=== PATIENT | male | born 1965 | race Caucasian/White ===

== ENCOUNTER 2017-07-07 11:04 | Inpatient (IN) | payer OTHER ==
[~2017-07-07] VITALS: Ht 175.3 cm; Wt 106.3 kg
--- NOTE | 2017-07-07 11:09 | NUR ---
EKG IN TRIAGE
--- NOTE | 2017-07-07 11:15 | NUR ---
PT SENT HERE FROM PCP FOR EVAL OF PALPITATION. DENIES CHEST PAIN OR SOB. PT C/O DIFFICULTY SLEEPING. PT NOTED TO BE HYPERTENSIVE AND TACHYCARDIAC. PT PLACED ON GREENSMAN SHOWING A-FIB RVR AND PLACED ON PULSE OX
--- NOTE | 2017-07-07 11:17 | NUR ---
PT EXAMINED BU DR MIKE
--- NOTE | 2017-07-07 11:25 | NUR ---
LAB AT BEDSIDE
--- NOTE | 2017-07-07 11:30 | NUR ---
ADENOSINE 6MG AND [address] ORDER. 1ST DOSE WITH NO EFFECT; 2ND DOSE: HR DECREASED FROM APPROX 170S TO 105 THEN RAISED BACK TO 170S AFTER 10SECS
[2017-07-07 11:50] LABS: BASOPHIL % 0.4 % (0-2); RED CELL DISTRIBUTION WIDTH 14.3 % (11.5-14.5)
--- NOTE | 2017-07-07 12:02 | NUR ---
R/T AT BEDSIDE FOR ANG REDRAW
[2017-07-07 12:04] LABS: PLATELET COUNT 179 x10^3mcL (130-400)
[2017-07-07 12:05] LABS: CALCIUM 8.6 mg/dL (8.5-10.1); CARBON DIOXIDE 25.1 mmol/L (21-32); CHLORIDE SERUM 106 mmol/L (98-107); CREATININE SERUM 1.1 mg/dL (0.7-1.3); GFR1 > 60 mL/min; GLUCOSE SERUM 111 mg/dL (74-106); SODIUM SERUM 142 mmol/L (136-145)
[2017-07-07 12:20] LABS: ALBUMIN 3.8 g/dL (3.4-5.0); ALKALINE PHOSPHATASE 83 U/L (46-116); ALT/SGPT 45 U/L (16-63); AST/SGOT 34 U/L (15-37); BILIRUBIN TOTAL 1.3 mg/dL (0.20-1.00); T4(THYROXINE) 7.8 ug/dL (4.7-13.3); TOTAL PROTEIN, SERUM 6.9 g/dL (6.4-8.2)
--- NOTE | 2017-07-07 12:40 | NUR ---
PT RESTING IN BED. RESP EVEN AND UNLABORED, 2LT NC. NAD NOTED. AWAITING OK TO MOVE TO [facility]
[2017-07-07 12:47] LABS: CK-MB 4.2 ng/mL (0-3.6)
--- NOTE | 2017-07-07 12:47 | NUR ---
REPORT GIVEN TO RUTH AVILA IN [facility] FOR CONTINUITY OF CARE. PT AWAITING OK TO TRANSPORT TO [facility] FROM
[2017-07-07 12:55] LABS: MAGNESIUM 2.1 mg/dL (1.8-2.4); PHOSPHOROUS 4.2 mg/dL (2.5-4.9)
[2017-07-07 12:57] LABS: CHOLESTEROL/HDL RATIO 2.4
[2017-07-07 13:04] LABS: FREE T4 1.38 ng/dL (0.76-1.46); T4(THYROXINE) 7.7 ug/dL (4.7-13.3)
[2017-07-07 13:16] LABS: T3 TOTAL 0.88 ng/mL
--- NOTE | 2017-07-07 13:38 | NUR ---
RECEIVED PT FROM ED [facility]IA [facility], CAME IN DUE TO PALPITATIONS. AAOX4. C/O MILD SOB, LUNG SOUNDS CTA. W/ PRODUCTIVE COUGH, EXPECTORATES WHITE PHLEGM. DENIES CHEST PAIN/PRESSURE, AFIB W/ RVR ON THE MONITOR, HR AT 140'S. DENIES ABDOMINAL DISCOMFORT. VOIDS FREELY. W/ DRY REDDISH SCABS ON RLE. W/ NON-PITTING EDEMA ON BLE. C/O MILD ANXIETY. FAMILY AT BEDSIDE. SIDE RAILS UPX2. CALL LIGHT ON REACH. PRIMARY NURSE RUTH AT BEDSIDE FOR CONTINUITY OF CARE
[2017-07-07 13:53] VITALS: BP 145/107
[2017-07-07 13:55] VITALS: Ht 175.3 cm; Wt 106.3 kg
--- NOTE | 2017-07-07 14:09 | NUR ---
DIGOXIN 0.25 MG SLOW IVP AND TAMBOCOR 50 MG PO GIVEN ORDERED FOR CF=110. DR. CASTELLANO AT BEDSIDE
--- NOTE | 2017-07-07 14:20 | NUR ---
DR. MCCRARY AT BEDSIDE ASSESSING THE PT
--- NOTE | 2017-07-07 17:36 | NUR ---
DR. CASTELLANO NOTIFIED OF BP 153/110. PT ASYMPTOMATIC AT THIS TIME.
[2017-07-07 17:48] VITALS: BP 153/110
[2017-07-07 18:30] LABS: microscopic required? YES; urine erythrocyte NEGATIVE (NEGATIVE)
--- NOTE | 2017-07-07 18:44 | NUR ---
PT RESTING IN BED. NO ACUTE DISTRESS. DENIES PAIN. IVF INFUSING. FAMILY AT BEDSIDE. BED IN LOW POSITION, CALL LIGHT WITHIN REACH. WILL ENDORSE TO INCOMING SHIFT.
[2017-07-07 18:46] LABS: AMPHETAMINE QUAL UR NONE DETECTED (NEG <=1000)
--- NOTE | 2017-07-07 20:00 | NUR ---
RECEIVED PT IN BED, ALERT AND ORIENTED. DENIES HEADACHE/DIZZINESS. RESP. EVEN AND UNLABORED. [address], NO DISTRESS NOTED. AFEBRILE AND VITAL SIGNS STABLE. AFIB WITH HR 93, ON THE MONITOR, DENIES CHEST PAIN OR ANY DISCOMFORT AT THIS TIME. IVF , NS AT 100ML/HR, INTACT AND INFUSING VIA LFA, SITE CLEAR. AMBULATORY. VOIDING FREELY. CALL [facility] WITHIN REACH. WILL CONTINUE TO MONITOR.
[2017-07-07 22:09] VITALS: BP 149/100
--- NOTE | 2017-07-07 22:30 | NUR ---
STARTED PT ON HEPARIN DRIP PER PROTOCOL. HEPARIN DRIP INFUSING AT 1300UNITS/HR AT THIS TIME, PENDING NEXT PTT LEVEL READING. WILL CONTINUE TO MONITOR.
--- NOTE | 2017-07-08 03:17 | NUR ---
NO COMPLAINTS NOTED AT THIS TIME. RESP. EVEN AND UNLABORED.NO DISTRESS NOTED. HEPARIN DRIP , IVF INTACT AND INFUSING , SITE CLEAR. FAMILY MEMBER AT THE BEDSIDE. WILL CONTINUE TO MONITOR.
[2017-07-08 04:26] LABS: CARBON DIOXIDE 24.7 mmol/L (21-32); CHLORIDE SERUM 106 mmol/L (98-107); GFR1 > 60 mL/min; GLUCOSE SERUM 104 mg/dL (74-106); POTASSIUM SERUM 3.8 mmol/L (3.5-5.1); SODIUM SERUM 140 mmol/L (136-145)
[2017-07-08 04:36] LABS: BASOPHIL % 0.4 % (0-2); PLATELET COUNT 147 x10^3mcL (130-400); RED CELL DISTRIBUTION WIDTH 14.3 % (11.5-14.5)
--- NOTE | 2017-07-08 05:30 | NUR ---
PTT LEVEL SHOWS 87.4, HEPARIN DRIP RATE DECREASED TO 1100UNITS PER PROTOCOL. NEXT PTT LEVEL DUE AT 0915.WILL CONTINUE TO MONITOR.
[2017-07-08 05:31] VITALS: BP 156/104
--- NOTE | 2017-07-08 06:47 | NUR ---
AFEBRILE AND VITAL SIGNS STABLE. DENIES CHEST PAIN OR ANY DISCOMFORT. SLEPT WELL. RESP. EVEN AND UNLABORED. NO DISTRESS NOTED. HEPARIN DRIP INFUSING AT 1100UNITS/HR,PENDING NEXT PTT LEVEL READING. NO ACTIVE BLEEDING NOTED. IVF, NS AT 150ML/HR, INFUSING WELL, SITE CLEAR. KEPT COMFORTABLE. WILL ENDORSE TO INCOMING NURSE.
--- NOTE | 2017-07-08 07:50 | NUR ---
RECEIVED PT IN BED A/A/OX4 DENIES THAKUR. RESP EVEN AND UNLABORED ON O2 AT 3L/MIN VIA NC WITH O2 SAT 100%, DECREASED O2 TO 2L/MIN VIA NC. REPORTS FEELING SOB WITH ACTIVITY. AFIB ON TELE HR 110. DENIES ANY SOB/CP/PRESSURE AT THIS TIME. ON HEPARIN DRIP PROTOCOL AT 1100 UNITS/HR. PTT DUE AT 0915. NOTED WITH TRACE EDEMA TO BLE. IVF NS AT 150ML/HR TO LFA. ABD SOFT, NONTENDER WITH ACTIVE BS X4. DENIES ANY N/V AT THIS TIME. VOIDING FREELY. AMBULATORY. CALL LIGHT IN REACH NEEDS ATTENDED TO.
[2017-07-08 09:48] VITALS: BP 149/93
[2017-07-08 13:35] VITALS: BP 139/89
--- NOTE | 2017-07-08 14:50 | NUR ---
DR. MCCRARY IN TO EVAL PT AND UPDATE PT AND FAMILY WITH POC.
[2017-07-08 16:20] VITALS: BP 147/99
--- NOTE | 2017-07-08 16:40 | NUR ---
NOTED ORDER TO STOP HEPARIN AND START XARELTO. HEPARIN DRIP D/C'D AT THIS TIME. XARELTO WILL BE GIVEN WITH IN 1 HR. WILL CONT TO MONITOR.
--- NOTE | 2017-07-08 18:12 | NUR ---
PT RESTING AT THIS TIME. WITH FAMILY AT BEDSIDE. DENIES ANY DISCOMFORT AT THIS TIME. HR 120 AFIB ON TELE. NO EPISODES OF CP/SOB REPORTED. WEAN DOWN OFF O2 TO 1.5L/MIN VIA NC AND INSTRUCTED TO DEEP BREATHING EXERCISES. FAMILY AT BEDSIDE CALL LIGHT IN REACH NEEDS ATTENDED TO.
--- NOTE | 2017-07-08 20:03 | NUR ---
PT A/O X4. VERBAL RESPONSE. LUNG SOUNDS BILATERALLY CLEAR. ON NC AT 1.5L WITH 02 AT 98%, STATES HE HAS MINIMAL SOB WHILE SITTING/LAYING. BILATERAL RADIAL PULSES PRESENT, DENIES ANY CHEST PAIN. PT ON TELE 44, AFIB. BOWEL SOUNDS IN ALL 4 QUADRANTS, NO DISTENTION/TENDERNESS NOTED. BILATERAL PEDAL PULSES PRESENT, HAS +1 PITTING EDEMA. IV TO LFA, INTACT. DRESSING INTACT, NO LEAKING/INFILTRATION. AT BEDSIDE. ALL NEEDS MET, CALL LIGHT IN REACH, WILL CONTINUE TO MONITOR.
[2017-07-08 21:20] VITALS: BP 134/91
--- NOTE | 2017-07-09 05:24 | NUR ---
PT A/O X4. ON 2L NC WITH O2 AT 99%. C/O MINIMAL SOB WHILE SITTING/LYING. NO RESPIRATORY DISTRESS AT THIS TIME. DENIES ANY CHEST PAIN. +1 PITTING EDEMA TO BLE. IV TO LFA, NO LEAKING/INFILTRATION. ALL NEEDS MET, CALL LIGHT IN REACH, AT BEDSIDE. WILL CONTINUE TO MONITOR.
[2017-07-09 06:12] VITALS: BP 143/93
[2017-07-09 07:25] LABS: BASOPHIL % 0.5 % (0-2); PLATELET COUNT 167 x10^3mcL (130-400); RED CELL DISTRIBUTION WIDTH 13.9 % (11.5-14.5)
--- NOTE | 2017-07-09 08:00 | NUR ---
AAO TIMES 4. TELE # 44 A FIB 120-150'S. LUNGS CTA BUL, WITH FINE CRACKLES TO BASES. O2 SAT ON 1.5L NC 98%. BS'S ACTIVE TIMES 4. PT'S PRESENT. PERIPHERAL PULSES PALPABLE, +1 EDEMA BLE. COOPERATIVE. NO C/O PAIN. PT WATCHING TV. SCD BLE.
[2017-07-09 09:06] VITALS: BP 150/103
--- NOTE | 2017-07-09 12:02 | NUR ---
MEDICAL ROUNDS WERE DONE WITH DR SMITH, DR BROWN AND DR MAJOR. THEY WERE MADE AWARE OF PT'S HR OF 150'S THIS AM, THEY WERE SHOWN THE STRIPS. HE WILL STAY ANOTHER DAY.
--- NOTE | 2017-07-09 12:26 | NUR ---
DR FRYE AWARE THAT PT'S HR WAS 140-150'S A FIB THIS AM, AND HIS BP WAS 150/103.
[2017-07-09 12:53] VITALS: BP 136/85
[2017-07-09 17:14] VITALS: BP 124/89
--- NOTE | 2017-07-09 18:24 | NUR ---
AAO TIMES 4. TELE # 44 A FIB 112. NO SOB. NO C/O PAIN. PT'S PRESENT ALL DAY, SUPPORTIVE. IV SITE LFA CDI. COOPERATIVE AND PLEASANT.
--- NOTE | 2017-07-09 19:30 | NUR ---
PT IS A/O x4. LUNG SOUNDS CLEAR BILATERALLY IN ALL FIEDLS. NO COMPALIN OF SOB. PT ON NASAL CANNULA 1.5L SPO2 98%. TELE MONTIOR #44, ST WITH HR OF 105. DENIES ANY CHEST PAIN OR PRESSURE. EDEMA ON LLE. PULSES PRESENT. BOWEL SOUNDS PRESENT X4. ABD IS FIRM BUT NONTENDER. SKIN IS CLEAN AND INTACT. NO PAIN REPORTED AT THIS MOMENT. IV IS PATENT AND INFUSING NS PER MD ORDER. IS AT BEDSIDE. CALL LIGHT WITHIN REACH. BED IN LOWEST SETTING. WILL CONTINUE TO MONITOR.
[2017-07-09 21:20] VITALS: BP 124/101
--- NOTE | 2017-07-10 00:14 | NUR ---
PT IS SLEEPING IN BED. NO SIGNS OF DISTRESS. PT IS BREATHING EVEN AND UNLABORED. IV IS RUNNING PER MD ORDER, NO SIGN OF INFILTRATION. BED IN LOWEST SETTING. CALL LIGHT WITHIN REACH. BY BEDSIDE. WILL CONTINUE TO MONITOR PT.
--- NOTE | 2017-07-10 05:13 | NUR ---
PT IS SLEEPING. NO SIGN OF ANY DISTRESS. IS AT BEDSIDE. IV IS PATENT AND RUNNING PER MD ORDER. NO SIGN OF INFILTRATION. BED IS IN LOWEST SETTING. CALL LIGHT IS WITHIN REACH. WILL ENDORSE TO AM NURSE.
[2017-07-10 05:55] VITALS: BP 142/100
--- NOTE | 2017-07-10 08:22 | NUR ---
AAO TIMES 4. TELE # 44 SR 90-100 AT REST. WHEN OOB USING BRP HIS HR IS 130'140'S. NO C/O PAIN. LUNGS CTA. NO SOB. O2 SAT ON RA 100%. BS'S ACTIVE TIMES 4. HENAO STRONG. IV SITE CDI. COOPERATIVE AND PLEASANT. PERIPHERAL PULSES PALPABLE. +1 EDEMA BLE. PRESENT, SUPPORTIVE.
[2017-07-10 09:28] VITALS: BP 154/90
[2017-07-10 13:42] VITALS: BP 139/86
--- NOTE | 2017-07-10 17:54 | NUR ---
AAO TIMES 4. TELE # 44 A FIB 130. PLEASANT, COOPERATIVE. DENIES DISCOMFORT. NO SOB. HENAO STRONG. WENT HOME, OTHER FAMILY IS PRESENT.
[2017-07-10 18:27] VITALS: BP 139/96
--- NOTE | 2017-07-10 19:30 | NUR ---
PT IS A/O x4. LUNGS CLEAR IN ALL [place]MI[place]. ON ROOM AIR. TELE #44. A-FIB HR 103. PT DENIES ANY CHEST PAIN AND PRESSURE AT THIS MOMENT. PEDIAL PULSES PRESENT. NONE PITTING EDEMA BLE. BOWEL SOUNDS PRESENT x4. SKIN WARM AND INTACT. PT DENIES ANY PAIN AT THIS MOMENT. IV ON LFA PATENT AND RUNNING NS PER MD ORDER, NO SIGNS OF INFILTRATION. PT IS SITTING UP IN THE CHAIR. CALL LIGHT WITHIN REACH. WILL CONTINUE TO MONITOR PT.
[2017-07-10 20:31] VITALS: BP 142/98
--- NOTE | 2017-07-11 00:03 | NUR ---
PT IS SLEEPING IN BED. NO SIGN OF DISTRESS NOTED. CALL LIGHT IS WITHIN REACH. BED IN LOWEST SETTING. WILL CONTINUE TO MONTIOR PT.
--- NOTE | 2017-07-11 05:11 | NUR ---
PT US SLEEPING IN BED. IV IS RUNNING PER MD ORDER. NO SIGN OF INFILTRATION. CALL LIGHT IS WITHIN REACH. BED IS IN LOWEST SETTING. WILL ENDORSE TO AM NURSE.
[2017-07-11 05:54] VITALS: BP 148/90
[2017-07-11 06:50] LABS: BASOPHIL % 0.6 % (0-2); PLATELET COUNT 192 x10^3mcL (130-400)
[2017-07-11 07:06] LABS: CALCIUM 9.1 mg/dL (8.5-10.1); CARBON DIOXIDE 30.7 mmol/L (21-32); CHLORIDE SERUM 106 mmol/L (98-107); CREATININE SERUM 1.1 mg/dL (0.7-1.3); GFR1 > 60 mL/min; GLUCOSE SERUM 93 mg/dL (74-106); MAGNESIUM 2.2 mg/dL (1.8-2.4); PHOSPHOROUS 4.2 mg/dL (2.5-4.9); POTASSIUM SERUM 4.2 mmol/L (3.5-5.1); SODIUM SERUM 145 mmol/L (136-145)
--- NOTE | 2017-07-11 07:15 | NUR ---
PT WAS ENDORSE TO ME THIS MORNING. AA/O X4. TELE 44 ST. HR 120. PT NOT SYMTOMATIC AT THIS TIME. DENIES ANY CHEST PAIN OR DISCOMFORT. LUNGS CLEAR ON RA. BREATHING EVEN AND UNLABORED. NO RESP DISTRESS OR SOB NOTED. VOIDS FREELY. AMB. SKIN WARM TO TOUCH AND INTACT. DENIES ANY PAIN. IV TO THE LFA AT 15ML/HR, INTACT. CALL LIGHT IN REACH. WILL CONTINUE PLAN OF CARE.
[2017-07-11 09:13] VITALS: BP 155/99
[2017-07-11 12:46] VITALS: BP 146/93
--- NOTE | 2017-07-11 13:00 | NUR ---
PT SITTING UP IN A CHAIR WITH GIRLFRIEND BY HIS SIDE. PT TOLERATED 100% OF HIS LUNCH. DENIES ANY CHEST PAIN OR DISCOMFORT AT THIS TIME. CALL LIGHT IN REACH.
[2017-07-11] MEDS ORDERED: [UNRECOGNIZED DRUG - CODE] PO (13:41)
[2017-07-11] MEDS ORDERED: XARELTO20 M1 PO (13:41)
[2017-07-11] MEDS ORDERED: DIG125 PO (13:42)
[2017-07-11] MEDS ORDERED: LIPI10 PO (13:42)
[2017-07-11] MEDS ORDERED: NIT0.4 SL (13:43)
[2017-07-11] MEDS ORDERED: CAR60 PO ×2 (13:44→14:34)
[2017-07-11] MEDS ORDERED: ZES5 PO (13:44)
[2017-07-11] MEDS ORDERED: ECO81 PO (13:45)
[2017-07-11] MEDS ORDERED: HYDROCHLOROTH12.5 M3 PO (13:46)
[2017-07-11 14:14] VITALS: BP 146/93
--- NOTE | 2017-07-11 15:32 | NUR ---
PER DOCTOR DEMETRA SWANSON. WILL GIVE PT 1 TAB OF XARELTO BEFORE DISCHARGE.
--- NOTE | 2017-07-11 15:40 | NUR ---
EXPLAINED DC INSTURCTIONS, MEDICATION AND FOLLOW UP APPOINTMENT TO PT AND HIS GIRL FRIEND. PT AGREED AND SIGNED ALL DOCUMENTS. PT ASKED TO SPK TO DR. FRYE. DOCTOR WAS MADE AWARE.REMOVED TELE 44 IV TO THE LFA. PT TOLERATED REMOVAL WELL.
--- NOTE | 2017-07-11 16:34 | NUR ---
DR. FRYE TALKED TO PT ABOUT HIS LABS AND RESULTS. PT IS NOW VERY CLEAR ON MEDS AND LABS VALUES. PT WILL CALL THE NURSES STATION WHEN HE IS DRESSED AND READY TO GO HOME.
--- NOTE | 2017-07-11 16:59 | NUR ---
ERMA CISNEROS WHEELED PT DOWN TO LOBBY. PT AA/OX4, BREATHING EVEN AND UNLABORED, NO RESP DISTRESS OR SOB NOTED. DENIES ANY CHEST PAIN OR PRESSURE. VS STABLE.
== END 2017-07-11 17:00 | disposition home or self-care (01) | DRG 308 ==
LOC: ED 11:04 → DU 11:31
PROVIDERS: Emergency Medicine; Family Medicine; Student in an Organized Health Care Education/Training Program; ADMIT Family Medicine Sports Medicine
DX: I48.91 Unspecified atrial fibrillation (principal); N17.0 Acute kidney failure with tubular necrosis; I16.1 Hypertensive emergency; E87.2 Acidosis; M10.9 Gout, unspecified; K57.30 Diverticulosis of large intestine without perforation or abscess without bleeding; E66.9 Obesity, unspecified; Z68.34 Body mass index [BMI] 34.0-34.9, adult; Z88.0 Allergy status to penicillin; I50.9 Heart failure, unspecified; I11.0 Hypertensive heart disease with heart failure; R73.03 Prediabetes
CPT/HCPCS: 36600; 83880; 84439; J0153; J1160; J1644; J3490; J7030; Q0092